=== PATIENT | male | born 1945 | race Caucasian/White ===

== ENCOUNTER → 2016-12-03 | Outpatient (CLI) | payer OTHER ==
--- NOTE | 2016-12-03 16:41 | US ---
Bilateral Duplex Carotid Sonography Clinical Indications: Follow-up carotid plaque. Check for progression (R09.89) Technique: The cervical portions of the carotid and vertebral arteries were imaged and interrogated by color and pulsed Doppler. Spectral analysis was performed. Findings: Comparison to prior study of December 08, 2012. Right Carotid: The common carotid artery, bifurcation, and origin of the internal and external carot id artery are well imaged. Minimal calcified plaque is seen mid right CCA anteriorly stable in appear ance without encroachment upon the limited. Mild calcified plaque is also noted at the carotid bulb a nd proximal ICA without encroachment upon the limited. Doppler velocity estimates and color Doppler spectra are normal. Peak ICA systolic velocity = 71.5 cm/sec and diastolic velocity = 13 cm/sec. No evidence of flow-limiting stenosis. Left Carotid: The common carotid artery, bifurcation, and origin of the internal and external caroti d artery are well imaged. No significant plaque is identified. Doppler velocity estimates and color Doppler spectra are normal. Peak ICA systolic velocity = 92 cm/sec and peak diastolic velocity = 22 cm/sec. No evidence of flow-limiting stenosis. Minimal calcified plaque at the carotid bulb without e ncroachment upon the lumen similar to the prior study. Vertebral Arteries: Antegrade flow is shown by pulsed Doppler of each vertebral artery. Impression: No evidence of flow-limiting carotid stenosis. No change since prior study. Measurement of carotid stenosis is based on velocity parameters that correlate the residual internal carotid diameter with [place] Symptomatic Carotid Endarterectomy Trial (NASCET) based stenosis levels.
== END ==
LOC: FIMAGING 09:43
PROVIDERS: ATTEND Internal Medicine Interventional Cardiology
DX: I70.8 Atherosclerosis of other arteries (principal)

== ENCOUNTER 2019-01-10 14:10 | Emergency (ER) | payer OTHER ==
--- NOTE | 2019-01-10 15:00 | EDPHY ---
H & P Time Seen by Provider: 01/10/19 14:38 HPI/ROS: HPI Fell backwards while ice skating. Hit head. 73-year-old male by private vehicle with his . This patient was ice skating with his . He slipped and fell backwards striking the back of his head. There was a brief loss of consciousness. His told me that he was perseverating a bit and repeating the same question but is doing better now. The patient reports having a mild dull headache to the back of his head. Denies any neck pain. No extremity pain. No loss of sensation or weakness in his extremities. He has not had any nausea or vomiting. He is not currently confused. He does not take antiplatelet or anticoagulant medications. ROS: Constitutional: No fever, no chills. As above. Eyes: No discharge. No changes in vision. Respiratory: No cough. No shortness of breath. Cardiac: No chest pain, no palpitations. Gastrointestinal: No abdominal pain, no vomiting, no diarrhea. Musculoskeletal: No back pain. No neck pain. No myalgias or arthralgias. Skin: No rashes. No lacerations or abrasions. Neurological: As above. No focal weakness or altered sensation. Past medical history: Lupus, hypertension, hyperlipidemia, hernia repair, degenerative disc disease of the lower back, Social history: Physical Exam: General Appearance: Alert, no distress. This patient is responding to questions appropriately and in full sentences. This patient appears well- hydrated and well-nourished. Head: Normocephalic atraumatic except for a subtle mid occipital scalp hematoma. No bony step-off or deformity noted on palpation of this area. Face: Facial bones are stable on palpation. Eyes: Pupils equal and round and reactive to light, no pallor or injection. No lid erythema or edema. ENT, Mouth: Mucous membranes moist. Dentition is intact. No malocclusion of the jaw. No tongue lacerations or abrasions. Pharynx is clear. The bilateral nasal canals are clear. No septal hematoma. Respiratory: There are no retractions, lungs are clear to auscultation with good air movement bilaterally. Chest wall is stable to AP and lateral palpation. Cardiovascular: Regular rate and rhythm. No murmur. Gastrointestinal: Abdomen is soft and nontender, no masses, bowel sounds normal. Neurological: Motor sensory function is intact. Cranial nerves are normal. Cerebellar function intact. Skin: Warm and dry, no rashes. No lacerations, abrasions or contusions. Musculoskeletal: Neck is supple and nontender. The trachea is midline. No midline cervical, thoracic, lumbar or sacral tenderness on palpation. No flank tenderness on palpation. Extremities are symmetrical, full range of motion. All joints in the bilateral upper and bilateral lower extremities range without pain or impingement. No tenderness on palpation of the long bones in the bilateral upper and bilateral lower extremities. Psychiatric: No agitation. No depression. Database: EKG: Imaging: CT head without contrast: Negative. Results were discussed with staff radiologist Dr. Salvatore Bennett. Procedures: Emergency department course: Triage vital signs reviewed. He is moderately hypertensive. Vital signs are otherwise normal. CT head will be obtained. Patient and his endorse. 4:10 p.m., the patient was re-evaluated. Sitting upright on the gurney. Repeat neurologic Assessment is nonfocal. He has been up and ambulatory with a normal gait. He denies any significant headache. He has had no nausea or vomiting or confusion. Results of his CT scan were discussed with him and his . He feels comfortable going home at this time and I feel he is safe for discharge. Follow-up and return to emergency department precautions reviewed with him and his . All of their questions were answered. The patient was discharged home in good condition. Differential Diagnosis: The differential diagnosis on this patient includes but is not limited to concussion syndrome, minor head injury. Skull fracture, traumatic brain injury , subarachnoid hemorrhage, subdural hematoma, epidural hematoma, cervical spine injury, other significant traumatic injury unlikely. This represents a partial list of diagnoses considered. These considerations are based on history, physical exam, past history, reassessment and diagnostic testing. Smoking Status: Never smoked Constitutional: Initial Vital Signs Temperature (C) 37.0 C 01/10/19 14:17 Heart Rate 82 01/10/19 14:17 Respiratory Rate 16 01/10/19 14:17 Blood Pressure 152/54 H 01/10/19 14:17 O2 Sat (%) 94 01/10/19 14:17 O2 Delivery Mode Room Air Allergies/Adverse Reactions: FUDEX Allergy (Uncoded 01/10/19 14:15) Home Medications: Medication Instructions Recorded Amlodipine Besylate 01/10/19 Aspirin 01/10/19 Crestor 01/10/19 Lisinopril 01/10/19 Viagra 01/10/19 Medical Decision Making - Diagnostics Imaging Results: Imaging Impressions Head CT 01/10/19 14:48 Impression: Negative. No acute fracture or evidence of acute intracranial injury. Findings discussed with Emergency Department physician, Donita Barfield M.D., on January 10, 2019 at 1527. Departure - Departure Disposition: Home, Routine, Self-Care Clinical Impression: Head injury Condition: Good Instructions: Head Injury (ED) Additional Instructions: Read and follow provided instructions. Follow-up with your primary care physician in 1-2 days for re-evaluation as needed. Ibuprofen dosin mg every 6 hours with meals for the next 3 days only. Take only as needed for pain. Return to the emergency department for worsening headache, confusion, nausea and vomiting or other serious concerns. Referrals: Karla Mills MD [Primary Care Provider] - As per Instructions
[2019-01-10 16:18] VITALS: BP 157/60
== END 2019-01-10 16:19 | disposition home or self-care (01) ==
DX: S09.90XA Unspecified injury of head, initial encounter (principal); I10 Essential (primary) hypertension; M32.9 Systemic lupus erythematosus, unspecified; E78.5 Hyperlipidemia, unspecified; V00.211A Fall from ice-skates, initial encounter; Y93.21 Activity, ice skating; Y92.330 Ice skating rink (indoor) (outdoor) as the place of occurrence of the external cause